=== PATIENT | male | born 1955 | race Caucasian/White ===

== ENCOUNTER 2017-03-31 05:13 | Emergency (ER) | payer OTHER ==
[~2017-03-31] VITALS: Ht 190.5 cm; Wt 109.1 kg
[2017-03-31] MEDS ORDERED: XARE20TA PO (05:29)
[2017-03-31] MEDS ORDERED: IRBE300T12 PO (05:29)
[2017-03-31] MEDS ORDERED: METO50TA7 PO (05:29)
[2017-03-31] MEDS ORDERED: MORPHINE 4 MG/ML 1ML SYRINGE IM ONE (06:30)
[2017-03-31] MEDS ORDERED: NS 1,000 ML IV ONE (07:15)
[2017-03-31] MEDS ORDERED: ONDANSETRON 4MG/2ML VIAL (J2405) IV ONE (07:15)
[2017-03-31] MEDS ORDERED: PROPOFOL 200 MG/20 ML VIAL IV PRN ×2 (08:00→08:30)
[2017-03-31] MEDS ORDERED: MORPHINE 4 MG/ML 1ML SYRINGE IV ONE (08:00)
--- NOTE | 2017-03-31 08:33 | REP ---
Clinical: Trauma. Anticoagulative therapy. Findings: Age-related atrophy and microvascular ischemic changes are appreciated. The ventricles and sulci are symmetric. Harper-white differentiation is maintained. There is no evidence for acute intracranial hemorrhage, mass/mass effect, pathology or infarction. No extra-axial fluid collection. Calvarium is intact. Paranasal sinuses and mastoid air cells are within normal limits - mild mucosal thickening to the ethmoid and sphenoid sinuses noted . Impression: Age related atrophy and microvascular ischemic changes. No acute intracranial hemorrhage, infarction, or mass/mass effect. Possible mild sinus disease. Signed by Jamar Mcmillan MD 03/31/2017 08:25 A
--- NOTE | 2017-03-31 08:35 | REP ---
Clinical: Trauma. Technique: Axial noncontrast images from the skull base to the thoracic inlet with coronal and sagittal re-formations Findings: Cervical vertebral bodies including transverse processes and spinous processes are intact and there is no evidence for acute fracture / compression injury or subluxation. Spinal canal is patent. Posterior elements are intact. Paravertebral soft tissues are normal. Moderate to advanced multilevel degenerative disc osteophyte complexes include marginal spurring/osteophyte formation, endplate sclerosis/heterogeneity, disc space narrowing, facet arthropathy and minimal chronic elements of anterolisthesis at the L4-5 level. Impression: Moderate/advanced chronic multilevel degenerative changes. No evidence for acute pathology or trauma/injury. Signed by Jamar Mcmillan MD 03/31/2017 08:28 A
--- NOTE | 2017-03-31 08:37 | REP ---
Clinical: Trauma. Technique: AP and lateral views of the left humerus. Findings: Anteroinferior glenohumeral joint dislocation is appreciated. Blunting to the glenoid rim along with subtle cortical irregularity and spurring at the acromioclavicular joint is consistent with chronic degenerative changes. No obvious acute fracture. Impression: Anteroinferior glenohumeral joint dislocation. Moderate arthritic degenerative changes at the shoulder. No acute fracture. Signed by Jamar Mcmillan MD 03/31/2017 08:30 A
--- NOTE | 2017-03-31 09:06 | REP ---
Clinical: Status post reduction. Technique: Single portable view of the left shoulder. Findings: Single neutral portable view of the left shoulder demonstrate satisfactory reduction at the glenohumeral joint. Mild to moderate degenerative changes are appreciated. No acute fracture. Impression: Satisfactory reduction at the glenohumeral joint. Signed by Jamar Mcmillan MD 03/31/2017 08:58 A
--- NOTE | 2017-03-31 09:08 | REP ---
Clinical: Trauma. Technique: Portable AP, lateral, bilateral oblique views of the left wrist. Findings: Age-related arthritic degenerative changes are appreciated primarily involving the first and second carpometacarpal joints as well as the radiocarpal joint space. Findings include subchondral sclerosis and joint space narrowing. No acute fracture or dislocation identified. Impression: Moderate degenerative changes. No acute fracture dislocation. Signed by Jamar Mcmillan MD 03/31/2017 08:59 A
[2017-03-31 12:08] VITALS: BP 165/85
== END 2017-03-31 12:13 | disposition home or self-care (01) ==
LOC: M ED 05:13
DX: S43.005A Unspecified dislocation of left shoulder joint, initial encounter (principal); W01.198A Fall on same level from slipping, tripping and stumbling with subsequent striking against other object, initial encounter; Y92.89 Other specified places as the place of occurrence of the external cause; Y93.41 Activity, dancing; Y99.8 Other external cause status; I10 Essential (primary) hypertension; I48.91 Unspecified atrial fibrillation; Z79.899 Other long term (current) drug therapy
CPT/HCPCS: 70450; 72125; 73020; 73060; 73110; 93041; 96361; 96372; 96374; 96375; 99285; J2405

== ENCOUNTER 2018-03-01 08:52 | Day surgery (SDC) | payer OTHER ==
[2018-03-01] MEDS: NS 1,000 ML IV (09:45)
[2018-03-01] MEDS ORDERED: LIDOCAINE 2% INJ 100 MG/5 ML SDV (FOR ANES.) As Ordered (10:36)
[2018-03-01] MEDS ORDERED: PROPOFOL 500 MG/50 ML VIAL As Ordered (10:36)
== END 2018-03-01 11:22 | disposition home or self-care (01) ==
LOC: M OPP 08:52
DX: Z12.11 Encounter for screening for malignant neoplasm of colon (principal); D12.7 Benign neoplasm of rectosigmoid junction; D12.2 Benign neoplasm of ascending colon; K64.8 Other hemorrhoids; R00.8 Other abnormalities of heart beat; I48.91 Unspecified atrial fibrillation; I10 Essential (primary) hypertension; Z87.891 Personal history of nicotine dependence; Z79.01 Long term (current) use of anticoagulants; Z79.899 Other long term (current) drug therapy; Z80.0 Family history of malignant neoplasm of digestive organs
CPT/HCPCS: 45385

== ENCOUNTER → 2021-06-30 | Outpatient (CLI) | payer MEDICARE, OTHER ==
[~2021-06-30] MED LIST: FLEC25TA; IRBE300T12 PO; METO50TA7 PO; NORV5TAB PO; XARE20TA PO
== END ==
LOC: M LABSMTC 10:29
PROVIDERS: ATTEND Anesthesiology
DX: Z01.812 Encounter for preprocedural laboratory examination (principal); Z20.822 Contact with and (suspected) exposure to COVID-19

== ENCOUNTER 2021-07-05 07:26 | Day surgery (SDC) | payer MEDICARE, OTHER ==
[~2021-07-05] VITALS: Ht 190.5 cm; Wt 107.5 kg
[~2021-07-05 07:26] MED LIST changes: +NS 1,000 ML IV ONE
--- OUTSIDE RECORDS SUMMARY | 2021-07-05 07:28 | CCD | Continuity of Care Document ---
Author Author Kwabena [facility] Organization Unknown Address [address] [place] [address], [address] [place] [address] Phone [phone] Care Team Providers Care Sql Server Bi Developer Name Role Phone Reagan Veras M.D. AUTM [phone] Problems Description No Active Problems Social History Type Date Description Comments Sex Unknown ETOH Use Denies alcohol use Tobacco Use Start: Unknown Non Smoker Allergies, Adverse Reactions, Alerts Description No Known Drug Allergies Medications Active Medications SIG Qnty Indications Ordering Provide r Date Suprep Bowel Prep Kit 17.5-3.13-1.6GM/177ML Solution take per doctor's bowel prep instructions. 354ml Z12.1 1 Kwabena Harper MD 03/24/2021 Milk Of Magnesia 1200mg/15ML Suspe nsion take 45 milliliters by mouth as directed on colonoscopy prep sheet. Z12.11 Kwbaena Harper MD 03/24/2021 Xarelto 20mg Tablets 1tab qd Unknown Metoprolol Succinate ER 50mg Tablets ER 24HR 1tab qd Unknown Irbesartan-Hydrochlorothiazide 300-12.5mg Tablets 1tab qd Unknown Flecainide Acetate 50mg Tablets 1tab bid Unknown Amlodipine Besylate 5mg Tablets 1 by mouth every day Unknown Immunizations Description No Information Available Vital Signs Date Vital Result Comment 03/24/2021 3:36pm BP Systolic 132 mmHg BP Diastolic 86 mmHg Height 75 inches 6'3" Weight 241.00 lb BMI (Body Mass Index) 30.1 kg/m2 [place] Body Weight 196 lb Weight 109.318 kg BSA (Body Surface Area) 2.38 m2 01/28/2018 9:21am BP Systolic 164 mmHg BP Diastolic 92 mmHg Height 75 inches 6'3" Weight 245.00 lb BMI (Body Mass Index) 30.6 kg/m2 [place] Body Weight 196 lb Weight 111.132 kg BSA (Body Surface Area) 2.39 m2 Results Description No Information Available Procedures Description No Information Available Medical Devices Description No Information Available Encounters Description No Information Available Assessments Date Code Description Provider 03/24/2021 Z12.11 Encounter for screening for cedric gnant neoplasm of colon Abigail Maude LOU [place] 03/24/2021 Z86.010 Personal history of colonic poly ps Abigail A LOU [place] 03/24/2021 Z80.0 Family history of malignant neop lasm of digestive organs Abigail Maude LOU [place] Plan of Treatment 03/24/2021 - Abigail A LOU [place]* Z12.11 Encounter for screening for malignant neoplasm of colon * Z86.010 Personal history of colonic polyps * Z80.0 Family history of malignant neoplasm of digestive organs * * New Medication:* Suprep Bowel Prep Kit 17.5-3.13-1.6 GM/177ML * Milk Of Magnesia 1200 mg/15ML * New Orders:* Colonoscopy, Ordered: 03/24/21 * Comments:* Will arrange for colonoscopy. Reviewed risks and benefits of the procedure, as well as other options, with the patient. Bowel prep procedure was discussed with patient, as well as risks and side effects associated with the bowel prep. A letter will be sent to Dr. Marmolejo requesting permission for [facility]. Patient verbalized understanding of all of the above and is in agreement to proceed. Patient will seek medical attention for any acute changes. Will monitor. * Follow up:* As scheduled, sooner if needed. Functional Status Description No Information Available Mental Status Description No Information Available Referrals Description No Information Available
--- OUTSIDE RECORDS SUMMARY | 2021-07-05 07:29 | CCD ---
Author Author [facility] Organization [facility] Address Unknown Phone Unavailable Care Team Providers Care Alignment Mechanic Name Role Phone BENITEZ CARLOS MD Unavailable Unavailable TERRANCEBENITEZ MD Unavailable Unavailable TERRANCEBENITEZ MD Unavailable Unavailable TERRANCEBENITEZ MD Unavailable Unavailable BENITEZ CARLOS MD Unavailable Unavailable TERRANCEBENITEZ MD Unavailable Unavailable TERRANCEBENITEZ MD Unavailable Unavailable TERRANCEBENITEZ MD Unavailable Unavailable TERRANCEBENITEZ MD Unavailable Unavailable TERRANCEBENITEZ MD Unavailable Unavailable TERRANCEBENITEZ MD Unavailable Unavailable TERRANCEBENITEZ MD Unavailable Unavailable TERRANCEBENITEZ MD Unavailable Unavailable TERRANCEBENITEZ MD Unavailable Unavailable TERRANCEBENITEZ MD Unavailable Unavailable BENITEZ CARLOS MD Unavailable Unavailable TERRANCEBENITEZ MD Unavailable Unavailable TERRANCEBENITEZ MD Unavailable Unavailable TERRANCEBENITEZ MD Unavailable Unavailable TERRANCEBENITEZ MD Unavailable Unavailable TERRANCEBENITEZ MD Unavailable Unavailable BENITEZ CARLOS MD Unavailable Unavailable BENITEZ CARLOS MD Unavailable Unavailable TERRANCEBENITEZ MD Unavailable Unavailable BENITEZ CARLOS MD Unavailable Unavailable BENITEZ CARLOS MD Unavailable Unavailable TERRANCEBENITEZ MD Unavailable Unavailable BENITEZ CARLOS MD Unavailable Unavailable BENITEZ CARLOS MD Unavailable Unavailable TERRANCEBENITEZ MD Unavailable Unavailable TERRANCEBENITEZ MD Unavailable Unavailable BENITEZ CARLOS MD Unavailable Unavailable BENITEZ CARLOS MD Unavailable Unavailable BENITEZ CARLOS MD Unavailable Unavailable BENITEZ CARLOS MD Unavailable Unavailable BENITEZ CARLOS MD Unavailable Unavailable BENITEZ CARLOS MD Unavailable Unavailable BENITEZ CARLOS MD Unavailable Unavailable BENITEZ CARLOS MD Unavailable Unavailable TERRANCEBENITEZ MD Unavailable Unavailable BENITEZ CARLOS MD Unavailable Unavailable BENITEZ CARLOS MD Unavailable Unavailable TERRANCEBENITEZ MD Unavailable Unavailable BENITEZ CARLOS MD Unavailable Unavailable BENITEZ CARLOS MD Unavailable Unavailable TERRANCEBENITEZ MD Unavailable Unavailable TERRANCEBENITEZ MD Unavailable Unavailable TERRANCE, MARQUIS MD Unavailable Unavailable TERRANCE, MARQUIS MD Unavailable Unavailable TERRANCE, MARQUIS MD Unavailable Unavailable TERRANCE, MARQUIS MD Unavailable Unavailable TERRANCE, MARQUIS MD Unavailable Unavailable TERRANCE, MARQUIS MD Unavailable Unavailable TERRANCE, MARQUIS MD Unavailable Unavailable TERRANCE, MARQUIS MD Unavailable Unavailable TERRANCE, MARQUIS MD Unavailable Unavailable TERRANCE, MARQUIS MD Unavailable Unavailable TERRANCE, MARQUIS MD Unavailable Unavailable TERRANCE, MARQUIS MD Unavailable Unavailable TERRANCE, MARQUIS MD Unavailable Unavailable TERRANCE, MARQUIS MD Unavailable Unavailable TERRANCE, MARQUIS MD Unavailable Unavailable TERRANCE, MARQUIS MD Unavailable Unavailable TERRANCE, MARQUIS MD Unavailable Unavailable TERRANCE, MARQUIS MD Unavailable Unavailable TERRANCE, MARQUIS MD Unavailable Unavailable TERRANCE, MARQUIS MD Unavailable Unavailable TERRANCE, MARQUIS MD Unavailable Unavailable TERRANCE, MARQUIS MD Unavailable Unavailable TERRANCE, MARQUIS MD Unavailable Unavailable TERRANCE, MARQUIS MD Unavailable Unavailable TERRANCE, MARQUIS MD Unavailable Unavailable TERRANCE, MARQUIS MD Unavailable Unavailable TERRANCE, MARQUIS MD Unavailable Unavailable TERRANCE, MARQUIS MD Unavailable Unavailable TERRANCE, MARQUIS MD Unavailable Unavailable TERRANCE, MARQUIS MD Unavailable Unavailable TERRANCE, MARQUIS MD Unavailable Unavailable TERRANCE, MARQUIS MD Unavailable Unavailable TERRANCE, MARQUIS MD Unavailable Unavailable TERRANCE, MARQUIS MD Unavailable Unavailable TERRANCE, MARQUIS MD Unavailable Unavailable TERRANCE, MARQUIS MD Unavailable Unavailable TERRANCE, MARQUIS MD Unavailable Unavailable TERRANCE, MARQUIS MD Unavailable Unavailable TERRANCE, MARQUIS MD Unavailable Unavailable TERRANCE, MARQUIS MD Unavailable Unavailable TERRANCE, MARQUIS MD Unavailable Unavailable TERRANCE, MARQUIS MD Unavailable Unavailable TERRANCE, MARQUIS MD Unavailable Unavailable TERRANCE, MARQUIS MD Unavailable Unavailable TERRANCE, MARQUIS MD Unavailable Unavailable TERRANCE, MARQUIS MD Unavailable Unavailable TERRANCE, MARQUIS MD Unavailable Unavailable TERRANCE, MARQUIS MD Unavailable Unavailable TERRANCE, MARQUIS MD Unavailable Unavailable TERRANCE, MARQUIS MD Unavailable Unavailable TERRANCE, MARQUIS MD Unavailable Unavailable TERRANCE, MARQUIS MD Unavailable Unavailable TERRANCE, MARQUIS MD Unavailable Unavailable TERRANCE, MARQUIS MD Unavailable Unavailable TERRANCE, MARQUIS MD Unavailable Unavailable TERRANCE, MARQUIS MD Unavailable Unavailable TERRANCE, MARQUIS MD Unavailable Unavailable TERRANCE, MARQUIS MD Unavailable Unavailable TERRANCE, MARQUIS MD Unavailable Unavailable TERRANCE, MARQUIS MD Unavailable Unavailable TERRANCE, MARQUIS MD Unavailable Unavailable TERRANCE, MARQUIS MD Unavailable Unavailable TERRANCE, MAQRUIS MD Unavailable Unavailable TERRANCE, MARQUIS MD Unavailable Unavailable TERRANCE, MARQUIS MD Unavailable Unavailable Re-disclosure Warning The records that you are about to access may contain information from federally-assisted alcohol or drug abuse programs. If such information is present, then the following federally mandated warning applies: This information has been disclosed to you from records protected by federal confidentiality rules (42 CFR part 2). The federal rules prohibit you from making any further disclosure of this information unless further disclosure is expressly permitted by the written consent of the person to whom it pertains or as otherwise permitted by 42 CFR part 2. A general authorization for the release of medical or other information is NOT sufficient for this purpose. The Federal rules restrict any use of the information to criminally investigate or prosecute any alcohol or drug abuse patient.The records that you are about to access may contain highly sensitive health information, the redisclosure of which is protected by Article 27-F of the [facility] Public Health law. If you continue you may have access to information: Regarding HIV / AIDS; Provided by facilities licensed or operated by the [facility] Office of Mental Health; or Provided by the [facility] Office for People With Developmental Disabilities. If such information is present, then the following [facility] mandated warning applies: This information has been disclosed to you from confidential records which are protected by state law. State law prohibits you from making any further disclosure of this information without the specific written consent of the person to whom it pertains, or as otherwise permitted by law. Any unauthorized further disclosure in violation of state law may result in a fine or fpc sentence or both. A general authorization for the release of medical or other information is NOT sufficient authorization for further disc losure. Family History Family Member Name Family Member Gender Family Member Status Date o f Status Description Data Source(s) Unknown Unknown Problem [facility] ([facility], ) Encounters Encounter Providers Location Date Indications Data Source(s ) Outpatient Attender: BENITEZ CARLOS MD [email or web address] 12:00:00 AM EST - 09/30/2020 09:26:49 AM EST [facility] Outpatient Attender: BENITEZ CARLOS MD [facility] 09:21:00 AM EST - 09/07/2020 09:22:00 AM EST I480 E785 I10 [facility] I480 E785 I10 Patient discharged. Immunizations Vaccine Date Status Description Data Source(s) COVID-19 VACC,MRNA(MODERNA)/PF 12/06/2020 12:00:00 AM EDT completed [facility] COVID-19 VACCINE Moderna 12/06/2020 12:00:00 AM EDT completed [facility] Vaccine Series Complete: YESThis Data wa s Submitted to [facility] Via [facility]. COVID-19 VACCINE Moderna 11/04/2020 12:00:00 AM EDT completed [facility] Vaccine Series Complete: NOThis Data was Submitted to [facility] Via [facility]. COVID-19 VACCINE, MRNA-1273, LNP-S (MODERNA)/PF 11/04/2020 1 2:00:00 AM EDT completed [facility] Medications Medication Brand Name Start Date Product Form Dose Route Admi nistrative Instructions Pharmacy Instructions Status Indications Reaction Description Data Source(s) Suprep Bowel Prep Kit Suprep Bowel Prep Kit 03/24/2021 12:00:00 AM EDT active MEDENT ([facility], ) Magnesium Hydroxide 80 MG/ML Oral Suspension Milk Of Magnesi a 03/24/2021 12:00:00 AM EDT ORAL active M EDENT ([facility], ) Flecainide Acetate 50 MG Oral Tablet flecainide (TAMBO COR) 50 MG tablet flecainide (TAMBOCOR) 50 MG tablet 09/29/2020 12:00:00 AM EST active TAKE 1 TABLET TWICE A DAY [facility] rivaroxaban 20 MG Oral Tablet [Xarelto] XARELTO 20 MG TABS X ARELTO 20 MG TABS 09/14/2020 12:00:00 AM EST active TAKE 1 TABLET DAILY [facility] 24 HR metoprolol succinate 50 MG Extende d Release Oral Tablet metoprolol succinate (TOPROL-XL) 50 MG 24 hr tablet metoprolol succinate (TOPROL-XL) 50 MG 24 hr tablet 09/03/2020 12:00:00 AM EST activ e TAKE 1 TABLET DAILY [facility] Amlodipine 5 MG Oral Tablet amLODIPine (NORVASC) 5 MG tablet amLODIPine (NORVASC) 5 MG tablet 07/29/2020 12:00:00 AM EST active TAKE 1 TABLET DAILY [facility] Hydrochlorothiazide 12.5 MG / irbesartan 300 MG Oral Tablet irbesartan- hydrochlorothiazide (AVALIDE) 300-12.5 MG per tablet irbesartan- hydrochlorothiazide (AVALIDE) 300-12.5 MG per tablet 06/18/2020 12:00:00 AM EST active TAKE 1 TABLET MIRTA ZULUAGA [facility] Insurance Providers Payer name Policy type / Coverage type Policy ID Covered republican ID Covered republican's relationship to delgado Policy Delgado Plan Information [id number] Mara [id number] xxxxxxxxx [id number] [facility] (2018) Health Maintenance Organization (HMO) [id number] Family Dependent [id number] MEDICARE [id number] xxxxxxxxxxx [id number] MEDICARE [id number] [facility] [id number] V02 [facility] [id number] WI2 [id number] [facility] [place] O [id number] S [id number] MEDICARE [id number] [id number] REGION 1 CLAIMS -O/P [id number] 18 [id number] FOR LIFE [id number] WI2 [id number] [facility] [employer] [facility] [id number] WI2 [id number] MEDICARE [id number] S [id number] FOR LIFE [id number] SPOUSE [id number] Problems, Conditions, and Diagnoses Code Display Name Description Problem Type Effective Dates Data Source(s) E78.5 Hyperlipidemia, unspecified Hyperlipidemia, unspecifie d Diagnosis 09/30/2020 08:42:17 AM [facility] I10 Essential (primary) hypertension Essential (primary) h ypertension Diagnosis 09/30/2020 08:42:17 AM [facility] I48.0 Paroxysmal atrial fibrillation Paroxysmal atrial fibri llation Diagnosis 09/30/2020 08:42:17 AM [facility] E78.5 Hyperlipidemia, unspecified HYPERLIPIDEMIA, UNSPECIFIE D Diagnosis 09/07/2020 09:21:00 AM EST [facility] I48.0 Paroxysmal atrial fibrillation PAROXYSMAL ATRIAL FIBRI LLATION Diagnosis 09/07/2020 09:21:00 AM [facility] Surgeries/Procedures Procedure Description Date Indications Data Source(s) ECG ROUTINE ECG W/LEAST 12 LDS W/I&R <td>POCT AMB EKG</td><td>Routine</td><td>09/30/2020 9:27 AM EST</td><td> Paroxysmal atrial fibrillation Benign essential hypertension</td><td> </td> 09/30/2020 02:27:00 PM EST [facility] Benign essential hypertension Paroxysmal atrial fibrillation Results ID Date Data Source [id number] 06/30/2021 10:05:00 AM [facility] Name Value Range Interpretation Code Description Data Latha rce(s) Supporting Document(s) SARS-CoV-2 (COVID-19) RNA [Presence] in Respiratory specimen by MARIBEL with probe detection Not Detected [facility] This lab was ordered by [facility] and reported by [employer]. ID Date Data Source [id number] 09/07/2020 10:47:00 AM EST [facility] Name Value Range Interpretation Code Description Data Latha rce(s) Supporting Document(s) Sodium 144 mmol/L 136-145 Normal (applies to non-numeric resul ts) [facility] Potassium 3.5-5.1 Normal (applies to non-numeric resul ts) [facility] Chloride 106 mmol/L 98-107 Normal (applies to non-numeric resul ts) [facility] Carbon Dioxide CO2 21-32 Normal (applies to non-numer ic results) [facility] Anion Gap 5.0-16.0 Normal (applies to non-numeric resul ts) [facility] BUN 17 mg/dL 7-18 Normal (applies to non-numeric results) [facility] Creatinine,Serum 0.8-1.5 Normal (applies to non-numeric results) [facility] GFR >60 Normal (applies to non-numeric results) [facility] Glucose Level 96 mg/dL 60-99 Normal (applies to non-numeric re sults) [facility] Reference range is only applicable when patient is fasting Note the following drug interference: Sulfasalazine Sulfapyridine Can see falsely depressed Can see falsely elevated result with up to 17% results with up to 11% decrease in measurement increase in measurement Recommend patients be collected for this test prior to administration of either drug. Calcium 8.5-10.1 Normal (applies to non-numeric resul ts) [facility] Bilirubin,Total 0.1-1.9 Normal (applies to non-numeric results) [facility] SGOT(AST) 18 U/L 15-37 Normal (applies to non-numeric resul ts) [facility] Note the following drug interference: Sulfasalazine Sulfapyridine Can see falsely depressed Can see falsely elevated result with up to 10% results with up to 10% decrease in measurement increase in measurement Recommend patients be collected for this test prior to administration of either drug. SGPT(ALT) 41 U/L 12-78 Normal (applies to non-numeric resul ts) [facility] Note the following drug interference: Sulfasalazine Sulfapyridine Can see falsely depressed Can see falsely elevated result with up to 29% results with up to 10% decrease in measurement increase in measurement Recommend patients be collected for this test prior to administration of either drug. Alkaline Phosphatase 63 U/L 38-126 Normal (applies to non-num suellen results) [facility] can increase Alkaline Phosp le vels up to 2 times the normal adult value. Normal values for children and adolescents are 2 to 3 times the normal adult value. Total Protein 6.0-8.2 Normal (applies to non-numeric re sults) [facility] Albumin Level 3.4-5.0 Normal (applies to non-numeric re sults) [facility] ID Date Data Source [id number] 09/07/2020 10:47:00 AM EST [facility] Name Value Range Interpretation Code Description Data Latha rce(s) Supporting Document(s) Triglycerides 125 mg/dL <150 Normal (applies to non-numeric re sults) [facility] Cholesterol 155 mg/dL 100-200 Normal (applies to non-numeric resu lts) [facility] LDL Cholesterol Calculated 92 0-130 Normal (applies to n on-numeric results) [facility] HDL Cholesterol 38 mg/dL 40-60 Below low normal [facility] Cholesterol/HDL Ratio 3.6-6.7 Normal (applies to non-nu meric results) [facility] ID Date Data Source [id number] 09/07/2020 10:01:00 AM EST [facility] Name Value Range Interpretation Code Description Data Latha rce(s) Supporting Document(s) White Blood Count 3.5-10.5 Normal (applies to non-numeri c results) [facility] Red Blood Count 4.30-5.70 Normal (applies to non-numeric results) [facility] Hemoglobin 13.5-17.5 Normal (applies to non-numeric resul ts) [facility] Hematocrit 38.8-50.0 Normal (applies to non-numeric resul ts) [facility] Mean Corpuscular Volume 81.2-95.1 Normal (applies to non- numeric results) [facility] Mean Corpuscular Hgb 25.6-32.2 Normal (applies to non-num suellen results) [facility] Mean Corpuscular Hgb Conc 32.0-36.0 Normal (applies to no n-numeric results) [facility] Red Cell Distribution Width 11.8-15.6 Normal (appli es to non-numeric results) [facility] Platelet Count 171 x10 3/uL 150-450 Normal (applies to non-numeric results) [facility] Mean Platelet Volume 9.4-12.4 Normal (applies to non-num suellen results) [facility] Neutrophils% (Auto) 31.0-71.0 Normal (applies to non-nume gus results) [facility] Lymphocytes% (Auto) 20.0-55.0 Normal (applies to non-nume gus results) [facility] Monocytes% (Auto) 4.0-12.0 Normal (applies to non-numeri c results) [facility] Eosinophils% (Auto) 1.0-8.0 Normal (applies to non-nume gus results) [facility] Basophils% (Auto) 0.0-2.0 Normal (applies to non-numeri c results) [facility] Immature Granulocytes% (Auto) 0.0-2.0 Normal (shagufta lies to non-numeric results) [facility] Neutrophils# (Auto) 1.50-6.20 Normal (applies to non-nume gus results) [facility] Lymphocytes# (Auto) 1.20-4.00 Normal (applies to non-nume gus results) [facility] Monocytes# (Auto) 0.00-0.90 Normal (applies to non-numeri c results) [facility] Eosinophils# (Auto) 0.00-0.50 Normal (applies to non-nume gus results) [facility] Basophils# (Auto) 0.00-0.20 Normal (applies to non-numeri c results) [facility] Immature Granulocytes# (Auto) 0.00-7.00 No rmal (applies to non-numeric results) [facility] Procedure Social History Code Duration Value Status Description Data Source(s ) Alcohol intake 09/30/2020 12:00:00 AM EST Not Currently completed [facility] Smoking 09/30/2020 12:00:00 AM EST Never smoker completed Never s gaker [facility] Vital Signs ID Date Data Source UNK Name Value Range Interpretation Code Description Data Source(s) [facility]stolic blood pressure 132 mm[Hg] 132 mm[Hg] [facility] Diastolic blood pressure 86 mm[Hg] 86 mm[Hg] [facility] ([facility]) Body height 75 [in_i] 75 [in_i] [facility] ([facility]) 6'3" Body weight 241.00 [lb_av] 241.00 [lb_av] [facility] ([facility]) Body mass index (BMI) [Ratio] 30.1 kg/m2 30.1 k g/m2 [facility] ([facility]) [place] body weight 196 [lb_av] 196 [lb_av] [facility] ([facility]) Body weight 109.318 kg 109.318 kg [facility] ([facility]) Body surface area Derived from formula 2.38 m2 2.38 m2 JOHN ([facility]) Systolic blood pressure 150 mm[Hg] 150 mm[Hg] [facility] Diastolic blood pressure 90 mm[Hg] 90 mm[Hg] [facility] Heart rate 58 /min 58 /min [facility] Body height 190.5 cm 190.5 cm [facility] Body weight 115.667 kg 115.667 kg [facility] Body mass index (BMI) [Ratio] 31.87 kg/m2 31.87 kg/m2 [facility] Oxygen saturation in Arterial blood by Pulse oximetry 99 % 99 % [facility] Patient Treatment Plan of Care Planned Activity Planned Date Details Description Data Source (s) Flecainide Acetate 50 MG Oral Tablet 09/29/2020 12:00:00 AM [facility] rivaroxaban 20 MG Oral Tablet [Xarelto] 09/14/2020 12:00:00 AM [facility] 24 HR metoprolol succinate 50 MG Extended Release Oral Tablet 09/03/2020 12:00:00 AM [facility] Amlodipine 5 MG Oral Tablet 07/29/2020 12:00:00 AM [facility] Hydrochlorothiazide 12.5 MG / irbesartan 300 MG Oral T ablet 06/18/2020 12:00:00 AM [facility]
[2021-07-05] MEDS ORDERED: propofoL 200 MG/20 ML VIAL As Ordered ONE ×3 (09:10→09:24)
[2021-07-05] MEDS ORDERED: LIDOCAINE 2% 100MG/5ML SDV (FOR ANES.) As Ordered ONE ×2 (09:10→09:21)
--- NOTE | 2021-07-05 09:37 | ROOR ---
Patient Name: Kwabena Carey Procedure Date: 07/05/2021 9:12 AM Date of : 1955 Age: 65 Room: [facility] Gender: Male Note Status: Finalized Procedure: Colonoscopy Indications: Family history of colon cancer in a first-degree relative before age 60 years, Follow-up for history of adenomatous polyps in the colon Providers: Kwabena Harper MD Referring MD: BEATA COTA MD Requesting Provider: Medicines: Monitored Anesthesia Care Complications: No immediate complications. Procedure: Pre-Anesthesia Assessment: - The heart rate, respiratory rate, oxygen saturations, blood pressure, adequacy of pulmonary ventilation, and response to care were monitored throughout the procedure. The Colonoscope was introduced through the anus and advanced to the terminal ileum, with identification of the appendiceal orifice and IC valve. The colonoscopy was performed without difficulty. The patient tolerated the procedure well. The quality of the bowel preparation was fair. Findings: The perianal and digital rectal examinations were normal. (EXAM: Complete, PREP: Suboptimal) A 5 mm polyp was found in the sigmoid colon. The polyp was sessile. The polyp was removed with a cold snare. Resection and retrieval were complete. The exam was otherwise without abnormality on direct and retroflexion views. Impression: - Preparation of the colon was fair. - (EXAM: Complete, PREP: Suboptimal) - One 5 mm polyp in the sigmoid colon, removed with a cold snare. Resected and retrieved. - Small internal hemorrhoids. - The examination was otherwise normal on direct and retroflexion views. Recommendation: - Repeat colonoscopy in 3 years because the bowel preparation was suboptimal. - Repeat colonoscopy in 3 years for surveillance. Procedure Code(s): --- Professional --- 09771, Colonoscopy, flexible; with removal of tumor(s), polyp(s), or other lesion(s) by snare technique Diagnosis Code(s): --- Professional --- Z86.010, Personal history of colonic polyps Z80.0, Family history of malignant neoplasm of digestive organs K63.5, Polyp of colon CPT copyright 2019 [employer]. All rights reserved. The codes documented in this report are preliminary and upon cager operator review may be revised to meet current compliance requirements. Kwabena Harper MD Kwabena Harper MD 07/05/2021 9:36:36 AM Electronically signed by Kwabena Harper MD Number of Addenda: 0 Note Initiated On: 07/05/2021 9:12 AM Estimated Blood Loss: Estimated blood loss: none.
[2021-07-05 09:50] VITALS: BP 158/56
== END 2021-07-05 10:08 | disposition home or self-care (01) ==
LOC: M OPP 07:26
PROVIDERS: ATTEND Internal Medicine Gastroenterology
DX: Z12.11 Encounter for screening for malignant neoplasm of colon (principal); Z86.010 Personal history of colon polyps; Z80.0 Family history of malignant neoplasm of digestive organs; K63.5 Polyp of colon; Z79.899 Other long term (current) drug therapy

== ENCOUNTER 2023-05-17 05:56 | Day surgery (SDC) | payer MEDICARE, OTHER ==
[~2023-05-17] VITALS: Ht 190.5 cm; Wt 114.7 kg
[~2023-05-17 05:56] MED LIST changes: +FLEC1TAB PO; +METO1TAB7 PO; -NS 1,000 ML IV ONE; +SPIR-10 PO
[2023-05-17] MEDS ORDERED: LR 1,000 ML IV SCH ×2 (06:35→08:00)
[2023-05-17] MEDS ORDERED: MEPERIDINE 25 MG/ML 1ML VIAL IV PRN (08:00)
[2023-05-17] MEDS ORDERED: fentaNYL 100 MCG/2 ML INJECTION IV PRN (08:00)
[2023-05-17] MEDS ORDERED: ONDANSETRON 4MG 2ML VIAL IV PRN (08:00)
[2023-05-17] MEDS ORDERED: propofoL 200 MG/20 ML VIAL As Ordered ONE (08:39)
[2023-05-17 08:51] VITALS: BP 115/68; TEMP 97.5; O2SAT 100
== END 2023-05-17 08:57 | disposition home or self-care (01) ==
LOC: M SDC 05:56
PROVIDERS: ATTEND Internal Medicine Cardiovascular Disease
DX: I48.92 Unspecified atrial flutter (principal); I48.91 Unspecified atrial fibrillation; R00.1 Bradycardia, unspecified; R07.9 Chest pain, unspecified; I10 Essential (primary) hypertension; R60.0 Localized edema; K21.9 Gastro-esophageal reflux disease without esophagitis; Z79.899 Other long term (current) drug therapy; Z79.01 Long term (current) use of anticoagulants; F12.10 Cannabis abuse, uncomplicated

== ENCOUNTER → 2024-03-26 | Outpatient (CLI) | payer MEDICARE, OTHER | LOC: M PLALAB 13:45 | PROVIDERS: ATTEND Physician Assistant | DX: R97.20 Elevated prostate specific antigen [PSA] (principal) ==

== ENCOUNTER → 2024-05-29 | Outpatient (CLI) | payer MEDICARE, OTHER ==
[2024-05-29 15:11] LABS: BASO # 0.1 10^3/uL (0.0-0.2); BASO % 0.5 % (0.0-1.0); EOS # 0.1 10^3/uL (0.0-0.5); EOS % 0.6 % (0.0-3.0); HEMATOCRIT 44.8 % (42.0-52.0); HEMOGLOBIN 15.2 g/dl (13.5-17.5); LYMPH # 1.8 10^3/uL (1.5-5.0); LYMPH % 17.4 % (24.0-44.0); MEAN CORPUSCULAR HEMOGLOBIN 31.6 pg (27.0-33.0); MEAN CORPUSCULAR HGB CONC 33.9 g/dl (32.0-36.5); MEAN CORPUSCULAR VOLUME 93.1 fl (80.0-96.0); MONO # 0.7 10^3/uL (0.0-0.8); NEUTROPHILS # 7.4 10^3/uL (1.5-8.5); NEUTROPHILS % 73.6 % (36.0-66.0); PLATELET COUNT, AUTOMATED 197 10^3/uL (150-450); RED BLOOD COUNT 4.81 10^6/uL (4.30-6.10)
[2024-05-29 15:42] LABS: ALBUMIN 3.7 G/DL (3.2-5.2); CALCIUM LEVEL 9.8 MG/DL (8.3-10.6); CHOLESTEROL RISK RATIO 5.14 (<5); CREATININE FOR GFR 1.28 MG/DL (0.70-1.30); GLOMERULAR FILTRATION RATE 59.3 (>49); HDL CHOLESTEROL 34.6 MG/DL (>40); LDL CHOLESTEROL 99.2 MG/DL (<100); NON-HDL-C 143.4 MG/DL; POTASSIUM SERUM 4.5 MMOL/L (3.5-5.1); TOTAL PROTEIN 6.7 G/DL (5.7-8.2)
[2024-05-29 15:51] LABS: THYROID STIMULATING HORMONE 2.027 uIU/ML (0.55-4.78)
== END ==
LOC: M PLALAB 12:34
PROVIDERS: ATTEND Internal Medicine Cardiovascular Disease
DX: E78.5 Hyperlipidemia, unspecified (principal); I10 Essential (primary) hypertension; I48.0 Paroxysmal atrial fibrillation